=== PATIENT | female | born 1960 | race Caucasian/White ===

== ENCOUNTER → 2019-07-30 | Outpatient (CLI) | payer OTHER ==
[2019-07-30 11:12] LABS: BASO # 0.1 x10^3/uL (0.0-0.2); BASO % 1 % (0-3); EOS % 1 % (0-3); HEMATOCRIT 44.6 % (36.0-47.0); HEMOGLOBIN 14.9 g/dL (12.0-15.5); LYMPH # 1.9 x10^3/uL (1.0-4.8); LYMPH % 30 % (24-48); MEAN CORPUSCULAR HEMOGLOBIN 30 pg (25-35); MEAN CORPUSCULAR HGB CONC 33 g/dL (31-37); MEAN CORPUSCULAR VOLUME 89 fL (79-100); MONO # 0.6 x10^3/uL (0.0-1.1); MONO % 9 % (0-9); NEUT # 3.9 x10^3/uL (1.8-7.7); NEUT % 60 % (31-73); PLATELET COUNT 312 x10^3/uL (140-400); RED CELL DISTRIBUTION WIDTH 13.5 % (11.5-14.5); WHITE BLOOD COUNT 6.5 x10^3/uL (4.0-11.0)
[2019-07-30 11:31] LABS: ALBUMIN 3.8 g/dL (3.4-5.0); ALBUMIN/GLOBULIN RATIO 1.1 (1.0-1.7); CALCIUM 9.3 mg/dL (8.5-10.1); CHOLESTEROL/HDL RATIO 3.7; CREATININE 0.8 mg/dL (0.6-1.0); GFR 73.9; TOTAL BILIRUBIN 0.4 mg/dL (0.2-1.0); TOTAL PROTEIN 7.3 g/dL (6.4-8.2)
[2019-07-30 11:43] LABS: FREE T4 0.99 ng/dL (0.76-1.46); THYROID STIM HORMONE (TSH) 1.295 uIU/mL (0.358-3.74)
== END | disposition home or self-care (01) ==
LOC: LAB 10:38
PROVIDERS: ATTEND Family Medicine
DX: Z01.419 Encounter for gynecological examination (general) (routine) without abnormal findings (principal); E04.9 Nontoxic goiter, unspecified
CPT/HCPCS: 36415; 80053; 80061; 84439; 84443; 84481; 85025

== ENCOUNTER → 2019-08-06 | Outpatient (CLI) | payer OTHER ==
--- NOTE | 2019-08-06 16:07 | KCIC ---
EXAM: Pelvic sonogram. HISTORY: Postmenopausal bleeding. TECHNIQUE: Transabdominal and transvaginal sonographic imaging of the pelvis was performed. COMPARISON: None. FINDINGS: The uterus measures 8.7 x 5.0 x 4.1 cm. The endometrial stripe measures 5 mm longitudinally and 8 mm transversely. There is a posterior uterine fibroid measuring 3.2 cm. The ovaries are not seen. There is no pelvic free fluid. There is a nabothian cyst within the cervix. IMPRESSION: 1. 3.2 cm uterine fibroid. 2. Obscured ovaries. 3. Upper normal endometrial stripe thickness on longitudinal images and mild endometrial thickening on transverse images for the postmenopausal status of the patient. In the setting of postmenopausal bleeding, tissue sampling may be indicated for definitive diagnosis. Electronically signed by: Shanice Arriola MD (08/06/2019 4:04 PM) [id number]
--- NOTE | 2019-08-07 08:45 | KCIC ---
EXAM: Thyroid ultrasound HISTORY: Thyroid enlargement. COMPARISON: None. FINDINGS: Sonographic evaluation of the thyroid gland was performed. The right lobe measures 7.4 x 2.5 x 2.5 cm. A few small nodules are consistent with complicated cysts and measure up to 9 x 7 mm. The left lobe measures 7.9 x 4.5 x 2.8 cm. The left lobe is mostly replaced by heterogeneous solid nodules. The largest measures 4.2 x 3.8 x 2.9 cm. Another at the lower pole measures 3.4 x 3.0 x 2.3 cm. Other similar nodules are smaller. The isthmus measures 4 mm. IMPRESSION: 1. Multinodular goiter on the left. The largest left nodule measures 4.2 x 3.8 cm. Benignity is favored given multiplicity. Ultrasound-guided fine-needle aspiration could confirm benignity versus follow-up. Electronically signed by: Lissy Das MD (08/07/2019 8:42 AM) [facility]
== END | disposition home or self-care (01) ==
LOC: KCIC US 14:48
PROVIDERS: ATTEND Family Medicine
DX: D25.9 Leiomyoma of uterus, unspecified (principal); N88.8 Other specified noninflammatory disorders of cervix uteri; R93.89 Abnormal findings on diagnostic imaging of other specified body structures; E04.2 Nontoxic multinodular goiter
CPT/HCPCS: 76536; 76830; 76856

== ENCOUNTER → 2019-08-27 | Outpatient (CLI) | payer OTHER ==
--- NOTE | 2019-08-27 17:35 | RAD ---
Examination: US GUID NDL PLACE/ASPI/BX History: Left thyroid nodule FNA Comparison/Correlation: 08/06/2008 thyroid ultrasound exam Findings: Risks and benefits of ultrasound-guided fine-needle aspiration were discussed with patient and informed consent was obtained. Cleansing with ChloraPrep was performed. Sterile drapes were placed. 4 cc 1 percent lidocaine was administered at the left lateral neck. A total of 4 separate needles with attached syringes were placed into the dominant left thyroid lobe interpolar mass at various sites. According to the pathology department apprenticeship representative, the samples were adequate. 4 cc of 1 percent lidocaine was then administered more inferiorly along the lateral aspect of the left neck. A total of 4 separate needles with attached syringes were placed into the second largest of the left thyroid lobe masses. Samples were obtained from various sites within the mass. The pathology department represent stated that the samples obtained were adequate. The patient tolerated procedure well without immediate complications. Impression: Successful fine-needle aspiration of the dominant left thyroid lobe mass at the interpolar region and at the second largest mass in the lower pole of the left thyroid lobe. Electronically signed by: Franko Hall MD (08/27/2019 5:32 PM) [facility]
--- NOTE | 2019-08-28 12:06 | PATHOLOGY ---
Note [facility] Accession Number: [id number] TESTS RESULT FLAG UNITS REF RANGE LAB Clinician Provided Cytology Information No. of containers..01 Other (Miscellaneous) Source: LT INFERIOR THYROID DIAGNOSIS: LT INFERIOR THYROID NEGATIVE FOR MALIGNANT CELLS. COLLOID IS PRESENT. BETHESDA CATEGORY II. SPECIMEN CONSISTS OF ABUNDANT BENIGN FOLLICULAR CELLS, HEMOSIDERIN-LADEN MACROPHAGES, SCANT COLLOID AND BLOOD. THE PATTERN IS CONSISTENT WITH ADENOMATOID NODULE. Pathologist ICD10: 02 E04.1 Signed out by: Carlos Lam MD, Pathologist NPI- [id number] Performed by: Andrew Willoughby, Paramedic Instructor ([facility]) Gross description: 30 ML, RED, CLEAR /LCS 08/27/2019 1738 Local FLAG LEGEND: L-Low Normal,H-High Normal,LL-Alert Low,HH-Alert High <-Panic Low,>-Panic High,A-Abnormal,AA-Critical Abnormal Performed at: [address] [place] [address] Sincere Monroe MD, 02 [facility] [address] [place] [address] Omer Vincent MD, Specimen Comment: [id number] Specimen Comment: A duplicate report has been generated due to demographic updates. Performed at: [address] [place] [address] [facility] [address], [place], [place] [id number] MD Sincere Monroe MD Phone: [phone]
--- NOTE | 2019-08-28 12:06 | PATHOLOGY ---
Note [facility] Accession Number: [id number] TESTS RESULT FLAG UNITS REF RANGE LAB Clinician Provided Cytology Information No. of containers..01 Other (Miscellaneous) Source: LT SUPERIOR NODULE DIAGNOSIS: LT SUPERIOR NODULE NEGATIVE FOR MALIGNANT CELLS. COLLOID AND BLAND FOLLICULAR CELLS ARE PRESENT - THE FINDINGS ARE CONSISTENT WITH A BENIGN PROCESS SUCH AN ADENOMATOID NODULE OR A COLLOID NODULE. Signed out by: 02 Carlos Lam MD, Pathologist NPI- [id number] Performed by: Andrew Willoughby, Senior Quality Assurance Specialist ([facility]) Gross description: 30 ML, RED, CLEAR /LCS 08/27/2019 1736 Local FLAG LEGEND: L-Low Normal,H-High Normal,LL-Alert Low,HH-Alert High <-Panic Low,>-Panic High,A-Abnormal,AA-Critical Abnormal Performed at: 01 [facility] [address] [place] [address] Sincere Monroe MD, 02 [facility] [address] [place] [address] Omer Vincent MD, Specimen Comment: A courtesy copy of this report has been sent to [phone] Specimen Comment: [id number] Specimen Comment: Report sent to Specimen Comment: A duplicate report has been generated due to demographic updates. Performed at: 01 [facility] [place] [address], [place], [place] [id number] MD Sincere Monroe MD Phone: [phone]
== END ==
LOC: US 08:16
PROVIDERS: ATTEND Family Medicine
DX: E04.1 Nontoxic single thyroid nodule (principal)
CPT/HCPCS: 10005; 10006; 60300; 76942; 88173; 88305

== ENCOUNTER → 2019-09-02 | Outpatient (CLI) | payer OTHER ==
--- NOTE | 2019-09-04 15:07 | PATHOLOGY ---
[facility] Accession Number: [id number] . 01 Material submitted: . PART A: endometrium - ENDOMETRIAL BIOPSY OF THE UTERUS PART B: endocervix - ENDOCERVICAL BIOPSY . 01 Clinician provided ICD-10: N95.0 . 01 Clinical history: . Postmenopausal bleeding . 02 Diagnosis: A. Endometrium, biopsy: - Red blood cells and scant disrupted fragments of endometrium with proliferative features and focal tubal metaplasia. - Scant unremarkable endocervical mucosa. . B. Endocervix, curettage: - Scant ectocervical mucosa with features suggestive of mild dysplasia (JOSE-I). - Scant unremarkable endocervical mucosa. - Scant endometrium with proliferative features. (SKM/db; 09/04/2019) LBQ 09/04/2019 1051 Local . 02 Electronically signed: . Carlos Lam MD, Pathologist NPI- [id number] . 01 Gross description: . A. Received in formalin labeled "Manju Dela Cruz, EMB," is blood-tinged mucoid material containing small fragments of germain membranous tissue, measuring 2.5 x 0.6 x 0.1 cm in aggregate dimensions. The specimen is filtered and submitted entirely in cassette A1. . B. Received in formalin labeled "Manju Dela Cruz, ECC," is blood-tinged mucoid material containing small fragments of germain membranous tissue, measuring 0.8 x 0.6 x 0.1 cm in aggregate dimensions. The specimen is filtered and submitted entirely in cassette B1. (TSD; 09/03/2019) TOB/TOB 09/03/2019 1819 Local . 02 Pathologist provided ICD-10: N85.8, N87.0, N95.0 . 02 CPT . 976549, 622062 Specimen Comment: A courtesy copy of this report has been sent to [phone] Specimen Comment: Report sent to and Performed at: 01 [facility] [address] [place] [id number] MD Sincere Monroe MD Phone: [phone] Performed at: [address] [id number] MD Mario Lema MD Phone: [phone]
== END | disposition home or self-care (01) ==
LOC: SPEC 15:59
PROVIDERS: ATTEND Obstetrics & Gynecology
DX: N95.0 Postmenopausal bleeding (principal)
CPT/HCPCS: 88305

== ENCOUNTER → 2020-10-13 | Outpatient (CLI) | payer OTHER ==
--- NOTE | 2020-10-13 15:37 | KCIC ---
EXAM: Bilateral digital screening mammogram with tomosynthesis. HISTORY: 60-year-old female presents for screening mammography. TECHNIQUE: Full-field digital craniocaudal and mediolateral oblique 2D and 3D tomosynthesis images of both breasts are obtained for evaluation. Computer aided detection was applied. COMPARISON: There is no prior study within 10 years for comparison. This exam serves as a baseline ma mmogram. BREAST PARENCHYMAL DENSITY: Level B - Scattered fibroglandular densities. FINDINGS: There are multiple scattered areas of nodularity throughout both breasts, the multiplicity of which favors benignity. The most conspicuous of these are seen within the 10:30 position of the ri ght breast at mid depth, the 3:30 position of the right breast at anterior depth, the 5:00 position o f the left breast at anterior to mid depth, and 11:00 position of the right breast at mid depth. Ther e is no suspicious calcification or architectural distortion within either breast. IMPRESSION: BI-RADS Category 0: Incomplete. Additional imaging needed. RECOMMENDATION: Further evaluation with a viral breast sonogram is recommended to assess areas of nod ularity described above, given the absence of prior studies to confirm stability. If your mammogram demonstrates that you have dense breast tissue, which could hide abnormalities, and if you have other risk factors for breast cancer that have been identified, you might benefit from s upplemental screening tests that may be suggested by your ordering physician. Dense breast tissue, i n and of itself, is a relatively common condition. This information is not provided to cause undue c oncern, but rather to raise your awareness and to promote discussion with your physician regarding th e presence of other risk factors, in addition to dense breast tissue. A report of your mammography re sults will be sent to you and your physician. You should contact your physician if you have any ques tions or concerns regarding this report. Mammography is a sensitive method for finding small breast cancers, but it does not detect them all a nd is not a substitute for careful clinical examination. A negative mammogram does not negate a clin ically suspicious finding and should not result in delay in biopsying a clinically suspicious abnorma lity. PQRS compliance statement - Patient information was entered into a reminder system with a target due date for the next mammogram. "Our facility is accredited by the [employer] Mammography [employer]." Electronically signed by: Shanice Arriola MD (10/13/2020 3:35 PM) [email or web address]
== END ==
LOC: KCIC MAMMO 14:02
PROVIDERS: ATTEND Family Medicine
DX: Z12.31 Encounter for screening mammogram for malignant neoplasm of breast (principal)
CPT/HCPCS: 77063; 77067

== ENCOUNTER → 2020-10-22 | Outpatient (CLI) | payer OTHER ==
--- NOTE | 2020-10-22 16:37 | RAD ---
Examination: Bilateral Limited breast ultrasound. INDICATION: Screening mammogram recall for nodularity in both breasts. COMPARISON: 10/13/2020 and 05/26/2008 the mammograms. TECHNIQUE: Grayscale ultrasound of both breasts with color Doppler imaging was performed in the areas of mammographic interest. FINDINGS: Benign nodularity in both breasts is identified on targeted breast ultrasound in the areas of mammogr aphic interest, including the left 5:00 position anterior to mid depth, and the right mid depth 10:30 position, right anterior depth 3:30 o'clock position and right 11:00 position mid depth. Asymmetry with subtle distortion at the right 10:00 position 9 cm from the nipple corresponds on ultr asound with B asymmetries recalled from screening. In comparison with the previous mammogram from , this appears to have undergone some involution and is therefore favored to represent a benign etio logy. IMPRESSION: Benign findings on targeted bilateral breast ultrasound. No evidence of malignancy. BI-RADS Category 2 Benign findings Recommend return to routine screening next due in one year. Electronically signed by: Blayne Moreno MD (10/22/2020 4:35 PM) [id number]
== END ==
LOC: US 14:00
PROVIDERS: ATTEND Family Medicine
DX: N63.14 Unspecified lump in the right breast, lower inner quadrant (principal); N63.23 Unspecified lump in the left breast, lower outer quadrant
CPT/HCPCS: 76641-50

== ENCOUNTER → 2020-11-05 | Outpatient (CLI) | payer OTHER ==
[2020-11-05 10:10] LABS: ALBUMIN 3.6 g/dL (3.4-5.0); ALBUMIN/GLOBULIN RATIO 1.1 (1.0-1.7); CALCIUM 9.5 mg/dL (8.5-10.1); GFR 56.9; POTASSIUM 4.2 mmol/L (3.5-5.1); TOTAL BILIRUBIN 0.3 mg/dL (0.2-1.0)
[2020-11-05 10:15] LABS: CHOLESTEROL/HDL RATIO 3.3
[2020-11-05 10:20] LABS: BASO # 0.1 x10^3/uL (0.0-0.2); BASO % 1 % (0-3); EOS # 0.1 x10^3/uL (0.0-0.7); EOS % 1 % (0-3); HEMATOCRIT 45.1 % (36.0-47.0); HEMOGLOBIN 14.7 g/dL (12.0-15.5); LYMPH # 1.8 x10^3/uL (1.0-4.8); LYMPH % 27 % (24-48); MEAN CORPUSCULAR HEMOGLOBIN 29 pg (25-35); MEAN CORPUSCULAR HGB CONC 33 g/dL (31-37); MEAN CORPUSCULAR VOLUME 89 fL (79-100); MONO # 0.6 x10^3/uL (0.0-1.1); MONO % 9 % (0-9); NEUT # 4.2 x10^3/uL (1.8-7.7); NEUT % 62 % (31-73); PLATELET COUNT 331 x10^3/uL (140-400); RED BLOOD COUNT 5.07 x10^6/uL (3.50-5.40); RED CELL DISTRIBUTION WIDTH 13.6 % (11.5-14.5); WHITE BLOOD COUNT 6.8 x10^3/uL (4.0-11.0)
== END ==
LOC: LAB 09:33
PROVIDERS: ATTEND Family Medicine
DX: Z01.419 Encounter for gynecological examination (general) (routine) without abnormal findings (principal)
CPT/HCPCS: 36415; 80053; 80061; 84443; 85025

== ENCOUNTER → 2020-11-19 | Outpatient (CLI) | payer OTHER ==
--- NOTE | 2020-11-19 13:29 | KCIC ---
CT for coronary artery calcium scoring without contrast CLINICAL HISTORY: Screening study. Hyperlipidemia. TECHNIQUE: Computed tomography of the heart was performed with ECG gating, suspended respiration and without the administration of contrast material. Post processing was performed on the 3-D computer Impulsiv using diastolic phase images to measure the amount of coronary vascular calcium. Scoring wa s acquired using the Agatston Method. One or more of the following individualized dose reduction techniques were utilized for this study: 1. Automated exposure control 2. Adjustment of the mA and/or kV according to patient size 3. Use of iterative reconstruction technique Non-Coronary Findings: There is a small nonspecific region of groundglass opacification in the right retrocardiac region, which may reflect atelectasis or active pneumonic infiltrate. There is a band of scarring or subsegmental atelectasis in the right middle lobe, and this is associated with a 5 mm no dule seen best on series 4 axial image #16. Remaining visualized lung vidales are clear. Coronary Findings: The computer generated calcium scoring utilizing [id number] criteria are as follows: Left main coronary artery: 0 Left anterior descending artery: 0 Left circumflex artery: 0 Right coronary artery: 0 The total calcium score is 0 IMPRESSION: 1. The total coronary artery calcium score is 0. 2. 5 mm right middle lobe pulmonary nodule. Noncontrast CT scan of the chest to include the apical an d basal regions of the lungs is recommended for complete evaluation. 3. Small area of groundglass infiltrate right retrocardiac region which may relative chronic subsegme ntal atelectasis, but could also reflect small active area of infectious or inflammatory pneumonitis. Interpretation Guide: 0: No calcified plaque is present. This does not absolutely rule out the presence of atherosclerotic plaque, including unstable plaque, but does imply a very low likelihood of significant luminal narrow ing or obstruction. Recommendation: Healthy lifestyle choices including cessation of smoking and eati ng appropriately and exercise are encouraged. 1 to 10: Calcium is detected in the coronary circulation and confirms the presence of atherosclerotic plaque. The greater the amount of coronary calcium, the greater the likelihood of occlusive coronary artery disease. However, there is not a one-to-one relationship, and findings may not be site specif ic.The total amount of calcium correlates best with the total amount of atherosclerotic plaque, altho ugh the true "plaque burden" may be underestimated by calcium score. Individuals in this score range typically have mild to moderate luminal irregularity at coronary angiography. There is low risk of ca rdiovascular event based on this test. Recommendation: 1. Further evaluation and prevention strategie s should be based on global assessment of cardiovascular risk factors in addition to the results of t his test. 2. Reduction of modifiable cardiovascular risk factors should be considered. 11-100: Calcium is detected in the coronary circulation and confirms the presence of atherosclerotic plaque. The greater the amount of coronary calcium, the greater the likelihood of stenotic or occlusi ve coronary artery disease. However, there is not a one-to-one relationship, and findings may not be site specific. The total amount of calcium correlates best with the total amount of atherosclerotic p laque, although the true "plaque burden" may be underestimated by calcium score. Individuals in this score range typically have mild to moderate luminal irregularity at coronary angiography. There is a Low to intermediate risk of cardiovascular events based on this test. Recommendation: 1. Further dank luation and prevention strategies should be based on global assessment of cardiovascular risk factors in addition to the results of this test. 2. Aggressive reduction of modifiable cardiovascular risk f actors should be considered. 101 to 400: Calcium is detected in the coronary circulation and confirms the presence of atherosclero tic plaque. The greater the amount of coronary calcium, the greater the likelihood of stenotic or occ lusive coronary artery disease. However, there is not a one-to-one relationship, and findings may not be site specific. The total amount of calcium correlates best with the total amount of atherosclerot ic plaque, although the true "plaque burden" can be underestimated by calcium score. Individuals in t his score range typically have mild to moderate luminal irregularity at coronary angiography. There i s an intermediate risk of cardiovascular events based on this test. Recommendation: 1. Further evalua tion and prevention strategies should be based on global assessment of cardiovascular risk factors in addition to the results of this test. 2. Aggressive reduction of modifiable cardiovascular risk fact ors should be considered. Over 400: Calcium is detected in the coronary circulation and confirms the presence of atheroscleroti c plaque. The greater the amount of coronary calcium, the greater the likelihood of stenotic or occlu sive coronary artery disease. However, there is not a one-to-one relationship, and findings may not b e site specific. The total amount of calcium correlates best with the total amount of atherosclerotic plaque, although the true plaque burden may be underestimated by calcium score. A high calcium score may be consistent with a moderate to high risk of cardiovascular events within the 2-5 years. Recomm endation: 1. Strongly consider further cardiac evaluation for pre-clinical coronary heart disease. 2. [place] aggressive cardiovascular risk factor modification as indicated based on risk profile. Additional supporting information concerning the findings and recommendation contained within this report can be found in the consensus statements on coronary vascular calcium published by the [place] [employer] and [place] [employer] and Prevention 5 Conference (Circulation 1996 ; 94: 4026-2921; J Am Bon Cardiol 2000; 36: 326-340 and Circulation 2000; 101: 111-116). Electronically signed by: Ray Zaidi MD (11/19/2020 1:27 PM) [id number]
== END ==
LOC: KCIC CT 12:18
PROVIDERS: ATTEND Family Medicine
DX: Z13.6 Encounter for screening for cardiovascular disorders (principal); E78.5 Hyperlipidemia, unspecified; R91.1 Solitary pulmonary nodule; R91.8 Other nonspecific abnormal finding of lung field
CPT/HCPCS: 75571

== ENCOUNTER → 2020-12-04 | Outpatient (CLI) | payer OTHER ==
--- NOTE | 2020-12-04 11:17 | KCIC ---
CT THORAX WO INDICATION: PULMONARY NODULE, SEEN ON CT CALCIUM SCORE COMPARISON STUDY: CT cardiac calcium score 11/19/2020. TECHNIQUE: Unenhanced axial images were obtained through the lungs and upper abdomen. Coronal and sa gittal multiplanar reconstructions were also obtained. PQRS compliance statement: One or more of the following individualized dose reduction techniques were utilized for this examinat ion: 1. Automated exposure control 2. Adjustment of the mA and/or kV according to patient size 3. Use of iterative reconstruction technique FINDINGS: Lungs and Airways: No pulmonary mass. Middle lobe and lingular subsegmental atelectasis. Mild right p araspinal subpleural reticulation, likely fibrotic change related to prominent adjacent vertebral ost eophytes. Normal central airways. Pleura: The pleural spaces are normal. Heart and Mediastinum: Enlarged heterogeneous left thyroid lobe, better evaluated on thyroid ultrasou nd 08/27/2019. No axillary or supraclavicular lymphadenopathy. No mediastinal, hilar or retrocrural l ymphadenopathy. The heart and pericardium are within normal limits. The great vessels of the thorax a re normal. Abdomen: The visualized abdominal organs demonstrate no abnormality. Bones and Soft Tissues: The visualized skeletal structures and soft tissues of the chest wall are wit hin normal limits. IMPRESSION: Previously described middle lobe pulmonary nodule is not appreciated on this exam and was probably re lated to subsegmental atelectasis. No suspicious pulmonary nodules. Electronically signed by: Rene Ashby MD (12/04/2020 11:14 AM) [id number]
== END ==
LOC: KCIC CT 08:47
PROVIDERS: ATTEND Family Medicine
DX: R91.1 Solitary pulmonary nodule (principal); E04.1 Nontoxic single thyroid nodule
CPT/HCPCS: 71250

== ENCOUNTER → 2021-11-19 | Outpatient (CLI) | payer OTHER ==
--- NOTE | 2021-11-23 12:28 | KCIC ---
Bilateral digital screening mammograms with 3-D tomosynthesis: Reason for examination: Routine screening. Comparison is made to previous study dated 10/13/2020. Bilateral mammograms in CC and oblique projections were obtained with 2-D imaging and 3-D tomosynthes is imaging on a Siemens Inspiration unit and reviewed on the workstation. Interpretation was made wit h the benefit of CAD. The skin and nipples show no abnormalities. No abnormal axillary lymph nodes are seen. The breast par enchyma shows scattered fatty and fibroglandular density. (Breast density: Category B.) There continu e to be small nodular parenchymal densities bilaterally which are stable. There are no new dominant m asses, suspicious calcifications or architectural distortion. Benign calcifications are present. Impression: No evidence of malignancy. Recommend routine screening. BI-RAD Category 2: Benign. "Our facility is accredited by the [employer] Mammography Program." This patient's information has been entered into a reminder system for the patient to be notified wit h the results of her examination and a target date for the next mammogram. Electronically signed by: Lana Olivera MD (11/23/2021 12:25 PM) [email or web address]
== END ==
LOC: KCIC MAMMO 07:57
PROVIDERS: ATTEND Family Medicine
DX: Z12.31 Encounter for screening mammogram for malignant neoplasm of breast (principal)
CPT/HCPCS: 77063; 77067